=== PATIENT | male | born 1990 | race Caucasian/White ===

== ENCOUNTER 2018-09-24 19:19 | Inpatient (IN) ==
[2018-09-24] MEDS ORDERED: Morphine Sulfate 2 MG/ML SYRINGE IVP ONE (19:26)
[2018-09-24] MEDS ORDERED: Ondansetron 4 MG/2 ML VIAL IVP ONE (19:26)
[2018-09-24] MEDS ORDERED: 0.9 % Sodium Chloride 1,000 ML IVC STA (19:27)
[2018-09-24] MEDS ORDERED: Isovue-370 500 ML BOTTLE IVP ONE (19:27)
--- NOTE | 2018-09-24 19:30 | Emergency Department Note ---
Disposition Clinical Impression: Pancreatitis Qualifiers: Chronicity: acute Pancreatitis type: unspecified pancreatitis type Acute pancreatitis complication: no infection or necrosis Qualified Code(s): K85.90 - Acute pancreatitis without necrosis or infection, unspecified Disposition: Admitted As Inpatient Condition: Fair Referrals: Hardeep Lester MD [Primary Care Provider] - Forms: ED Satisfaction Letter, Work/School Release Time of Disposition: 22:39 General Adult HPI - General Stated complaint: N/V Time Seen by Provider: 09/24/18 19:25 Source: patient, EMS Mode of arrival: EMS Limitations: no limitations Nursing Notes Reviewed: Yes Vital Signs Reviewed: Yes - History of Present Illness HPI Narrative: Male patient with a past medical history of psychiatric disease as well as substance abuse is currently clean and on Suboxone at this time presenting to emergency department with a three-week history of abdominal pain. Has had intermittent abdominal pain for this long as well as intermittent nausea and vomiting. Girlfriend is with him at bedside. States that over the past day it is gotten significantly worse. States that previously he was vomiting after he ate however now he cannot keep anything down. Patient reports some subjective fevers this morning. Denies any hematemesis. Does report that today he has vomit has a very bad odor to it. Denies any diarrhea. No history of abdominal surgeries. - Related Data Home Medications Medication Instructions Recorded Confirmed Suboxone 12 mg-3 mg Sl Film 05/01/16 Previous Rx's Medication Instructions Recorded Benzonatate [Tessalon] 200 mg PO TID PRN #30 capsule 05/17/18 cephALEXin [Keflex] 500 mg PO QID #40 capsule 05/17/18 methylPREDNISolone [Medrol] 4 mg PO TAPER #21 tablet 05/17/18 Allergies Allergy/AdvReac Type Severity Reaction Status Date / Time No Known Allergies Allergy Verified 05/17/18 13:25 All systems ED: reviewed and negative except as stated. Review of Systems: As Per HPI Constitutional: Reports: chills. Denies: fever Cardiovascular: Denies: chest pain, syncope Respiratory: Denies: cough, dyspnea, sputum production Gastrointestinal: Reports: abdominal pain, nausea, vomiting. Denies: diarrhea, hematemesis, melena, hematochezia Genitourinary: Denies: urgency, dysuria, frequency, hematuria Musculoskeletal: Denies: back pain, neck pain Integumentary: Denies: rash Neurological: Reports: weakness Past Medical History - Past Medical History Attestation: Yes The following information was validated with the patient. Source: patient Medical history: Reports: non-contributory Psychiatric history: Reports: no psych history - Social History Smoking Status: Current every day smoker Smokeless Tobacco Status: No Alcohol use: Reports: none Physical Exam - General Limitations: no limitations General appearance: alert, in distress (Appears uncomfortable.) - Head Head exam: atraumatic, normocephalic, normal inspection - Eye Eye exam: Present: normal appearance, PERRL, EOMI - ENT ENT exam: normal exam, normal oropharynx, mucous membranes dry - Neck Neck exam: Present: normal inspection, full ROM, trachea midline - Chest Chest inspection: Present: normal inspection, symmetric chest wall rise. Absent: tenderness - Respiratory Respiratory exam: Present: normal lung sounds bilaterally. Absent: respiratory distress, accessory muscle use - Cardiovascular Cardiovascular exam: Present: regular rate, normal rhythm, normal heart sounds - Abdominal Exam Abdominal exam: Present: soft, tenderness (Diffusely. More on the left upper and left lower quadrant.). Absent: distention, Mason's sign, Rovsing's sign, tenderness at McBurney's Point - Extremities Exam Extremities exam: Present: normal inspection, full ROM, normal capillary refill. Absent: tenderness, pedal edema - Back Exam Back exam: Present: normal inspection, full ROM. Absent: tenderness - Neurological Exam Neurological exam: Present: alert, oriented X3 - Psychiatric Psychiatric exam: Present: normal affect, normal mood - Skin Skin exam: Present: warm, dry, intact, normal color Course Course Narrative: Patient appears uncomfortable resting in bed. He points to the left side of his abdomen when asked about the pain is. We will get a basic lab workup on patient as well as a CT of his abdomen with IV contrast. We will provide patient with anti-medics, a fluid bolus as well as pain medication. Patient's mucus memories are tachy. On exam his abdomen is soft nondistended however he does have pain to palpation of the left upper and left lower quadrants. No Mason sign. No tenderness at McBurney's point. Abdomen is currently not peritoneal on exam. - Reevaluation(s) Reevaluation #1: Patient with acute pancreatitis. We will admit to the hospital for pain and nausea control. Time: 22:18 - Consultations Consultation #1: Dr Carreno accepted Pt in stable condition. Vital Signs Temperature 97.6 F 09/24/18 19:23 Pulse Rate 66 09/24/18 19:23 Respiratory Rate 18 09/24/18 19:23 Blood Pressure 156/87 09/24/18 19:23 O2 Sat by Pulse Oximetry 96 09/24/18 19:23 Temperature 97.6 F 09/24/18 19:23 Pulse Rate 66 09/24/18 19:23 Respiratory Rate 18 09/24/18 19:23 Blood Pressure 156/87 09/24/18 19:23 O2 Sat by Pulse Oximetry 96 09/24/18 19:23 Oxygen Delivery Oxygen Delivery Room Air Medical Decision Making - Medical Records Medical records reviewed: Yes I reviewed the patient's medical records. - Lab Data Lab results reviewed: Yes I reviewed the patient's lab results. Result diagrams: 09/24/18 20:00 09/24/18 20:00 Lab Results 09/24/18 09/24/18 09/24/18 Range/Units 20:00 20:00 20:10 WBC 14.5 H (4.3-11.1) K/mcL RBC 5.56 H (4.19-5.50) M/mcL Hgb 15.8 (12.9-16.9) g/dL Hct 47.8 (37.5-50.1) % MCV 86.0 (83.0-100.0) fL MCH 28.4 (28.0-33.3) pg MCHC 33.1 (31.6-35.5) g/dL RDW 13.4 (11.5-14.5) % Plt Count 216 (140-400) K/mcL MPV 10.5 (9.4-12.4) fL Immature Gran % 0.4 (0-4) % Seg Neutrophils % 90.4 % Lymphocytes % 7.4 % Monocytes % 1.7 % Eosinophils % 0.0 % Basophils % 0.1 % Neutrophils # 13.1 H (1.6-8.9) K/mcL Lymphocytes # 1.1 (0.6-4.6) K/mcL Monocytes # 0.3 (0.0-1.3) K/mcL Eosinophils # 0.0 (0.0-0.6) K/mcL Basophils # 0.0 (0.0-0.2) K/mcL Sodium 139 (136-145) mEq/L Potassium 3.8 (3.5-5.1) mEq/L Chloride 104 (98-107) mEq/L Carbon Dioxide 27 (23-29) mEq/L BUN 9 (6-20) mg/dL Creatinine 0.65 L (0.70-1.30) mg/dL Est GFR ( Amer) > 60 (> 60) Est GFR (Non-Af Amer) > 60 (> 60) BUN/Creatinine Ratio 14 (6-26) Glucose 147 H (70-105) mg/dL Calculated Osmolality 289 (280-300) Calcium 10.0 (8.6-10.3) mg/dL Total Bilirubin 0.4 (0.3-1.0) mg/dL Direct Bilirubin 0.1 (0.0-0.2) mg/dL Indirect Bilirubin 0.3 (0.0-1.2) mg/dL AST 21 (13-39) Units/L ALT 30 (7-52) Units/L Alkaline Phosphatase 75 (34-104) Units/L Serum Total Protein 7.4 (6.4-8.9) g/dL Albumin 4.2 (3.5-5.7) g/dL Globulin 3.2 (2.4-3.5) g/dL Albumin/Globulin Ratio 1.3 (1.1-2.2) Lipase 175 H (11-82) Units/L Urine Color Yellow (Yellow) Urine Clarity Clear (Clear) Urine pH 6.0 (5.0-8.0) pH Units Ur Specific [place] 1.021 (1.010-1.025) Urine Protein Negative (Neg-Trace) mg/dL Urine Glucose (UA) Normal (Normal) mg/dL Urine Ketones Negative (Negative) mg/dL Urine Blood Negative (Negative) Urine Nitrite Negative (Negative) Urine Bilirubin Negative (Negative) Urine Urobilinogen Normal (Normal) mg/dL Ur Leukocyte Esterase Negative (Negative) Ur Culture Indicated? NO (NO) - Radiology Data Radiology results reviewed: Yes I reviewed the patient's radiology results. Abdomen/Pelvis CT 09/24/18 19:27 IMPRESSION: 1. Acute pancreatitis involving the head and uncinate process. No focal pancreatic fluid collection. 2. No other acute findings within the abdomen or pelvis. The appendix is unremarkable. 3. Cholelithiasis with no acute features. D/ / 09/24/2018 21:37:57 Merlin Wallace MD / [facility] Interpreting Provider: Merlin Wallace MD - EKG Data EKG #1 EKG attestation: Yes I reviewed and interpreted this EKG. EKG results narrative: Normal sinus rhythm at a rate of 65. NM interval is 158. QRS duration is 90. QT is 429. QTC is 447. Good R-wave progression. No signs of acute ischemia. No previous EKG to compare to.
--- NOTE | 2018-09-24 19:42 | Emergency Department Note ---
Disposition Clinical Impression: Pancreatitis Qualifiers: Chronicity: acute Pancreatitis type: unspecified pancreatitis type Acute pancreatitis complication: no infection or necrosis Qualified Code(s): K85.90 - Acute pancreatitis without necrosis or infection, unspecified Disposition: Admitted As Inpatient Condition: Fair Time of Disposition: 22:39 General Adult HPI - General Chief complaint: ED Abdominal Pain Stated complaint: N/V Time Seen by Provider: 09/24/18 19:25 Source: patient, EMS Mode of arrival: EMS Limitations: no limitations Nursing Notes Reviewed: Yes Vital Signs Reviewed: Yes - History of Present Illness Pain Scale: 8 - Related Data Home Medications Medication Instructions Recorded Confirmed Suboxone 12 mg-3 mg Sl Film 05/01/16 Buspar 09/24/18 09/24/18 HydrOXYzine 50 mg PO 09/24/18 Previous Rx's Medication Instructions Recorded Benzonatate [Tessalon] 200 mg PO TID PRN #30 capsule 05/17/18 cephALEXin [Keflex] 500 mg PO QID #40 capsule 05/17/18 methylPREDNISolone [Medrol] 4 mg PO TAPER #21 tablet 05/17/18 Allergies Allergy/AdvReac Type Severity Reaction Status Date / Time No Known Allergies Allergy Verified 05/17/18 13:25 Past Medical History - Past Medical History Medical history: Reports: non-contributory Psychiatric history: Reports: no psych history - Social History Smoking Status: Current every day smoker Smokeless Tobacco Status: No Alcohol use: Reports: none Drug use: Reports: none Physical Exam - General Limitations: no limitations General appearance: alert Course Vital Signs Temperature 97.6 F 09/24/18 19:23 Pulse Rate 66 09/24/18 19:23 Respiratory Rate 18 09/24/18 19:23 Blood Pressure 156/87 09/24/18 19:23 O2 Sat by Pulse Oximetry 96 09/24/18 19:23 Temperature 97.6 F 09/24/18 19:23 Pulse Rate 66 09/24/18 19:23 Respiratory Rate 18 09/24/18 19:23 Blood Pressure 156/87 09/24/18 19:23 O2 Sat by Pulse Oximetry 96 09/24/18 19:23 Oxygen Delivery Oxygen Delivery Room Air Medical Decision Making - Medical Records Medical records reviewed: Yes I reviewed the patient's medical records. - Lab Data Lab results reviewed: Yes I reviewed the patient's lab results. Result diagrams: 09/24/18 20:00 09/24/18 20:00 Lab Results 09/24/18 09/24/18 09/24/18 Range/Units 20:00 20:00 20:10 WBC 14.5 H (4.3-11.1) K/mcL RBC 5.56 H (4.19-5.50) M/mcL Hgb 15.8 (12.9-16.9) g/dL Hct 47.8 (37.5-50.1) % MCV 86.0 (83.0-100.0) fL MCH 28.4 (28.0-33.3) pg MCHC 33.1 (31.6-35.5) g/dL RDW 13.4 (11.5-14.5) % Plt Count 216 (140-400) K/mcL MPV 10.5 (9.4-12.4) fL Immature Gran % 0.4 (0-4) % Seg Neutrophils % 90.4 % Lymphocytes % 7.4 % Monocytes % 1.7 % Eosinophils % 0.0 % Basophils % 0.1 % Neutrophils # 13.1 H (1.6-8.9) K/mcL Lymphocytes # 1.1 (0.6-4.6) K/mcL Monocytes # 0.3 (0.0-1.3) K/mcL Eosinophils # 0.0 (0.0-0.6) K/mcL Basophils # 0.0 (0.0-0.2) K/mcL Sodium 139 (136-145) mEq/L Potassium 3.8 (3.5-5.1) mEq/L Chloride 104 (98-107) mEq/L Carbon Dioxide 27 (23-29) mEq/L BUN 9 (6-20) mg/dL Creatinine 0.65 L (0.70-1.30) mg/dL Est GFR ( Amer) > 60 (> 60) Est GFR (Non-Af Amer) > 60 (> 60) BUN/Creatinine Ratio 14 (6-26) Glucose 147 H (70-105) mg/dL Calculated Osmolality 289 (280-300) Calcium 10.0 (8.6-10.3) mg/dL Total Bilirubin 0.4 (0.3-1.0) mg/dL Direct Bilirubin 0.1 (0.0-0.2) mg/dL Indirect Bilirubin 0.3 (0.0-1.2) mg/dL AST 21 (13-39) Units/L ALT 30 (7-52) Units/L Alkaline Phosphatase 75 (34-104) Units/L Serum Total Protein 7.4 (6.4-8.9) g/dL Albumin 4.2 (3.5-5.7) g/dL Globulin 3.2 (2.4-3.5) g/dL Albumin/Globulin Ratio 1.3 (1.1-2.2) Lipase 175 H (11-82) Units/L Urine Color Yellow (Yellow) Urine Clarity Clear (Clear) Urine pH 6.0 (5.0-8.0) pH Units Ur Specific [place] 1.021 (1.010-1.025) Urine Protein Negative (Neg-Trace) mg/dL Urine Glucose (UA) Normal (Normal) mg/dL Urine Ketones Negative (Negative) mg/dL Urine Blood Negative (Negative) Urine Nitrite Negative (Negative) Urine Bilirubin Negative (Negative) Urine Urobilinogen Normal (Normal) mg/dL Ur Leukocyte Esterase Negative (Negative) Ur Culture Indicated? NO (NO) - Radiology Data Radiology results reviewed: Yes I reviewed the patient's radiology results. Abdomen/Pelvis CT 09/24/18 19:27 IMPRESSION: 1. Acute pancreatitis involving the head and uncinate process. No focal pancreatic fluid collection. 2. No other acute findings within the abdomen or pelvis. The appendix is unremarkable. 3. Cholelithiasis with no acute features. D/ / 09/24/2018 21:37:57 Merlin Wallace MD / [facility] Interpreting Provider: Merlin Wallace MD - EKG Data EKG #1 EKG attestation: Yes I reviewed and interpreted this EKG. EKG results narrative: EKG shows normal sinus rhythm with ventricular rate of 65. No ST segment elevation or depression. No arrhythmia or ectopy. Normal EKG. Attestation Statement - Attestation Attestation: I, Pako Andre MD, personally evaluated this patient and discussed their management with the resident physician. I reviewed the resident's note and agree with the documented findings, medical decision making, and plan of care. I reviewed the residents documentation and agree with the residents assessment and plan of care. I have personally had face to face time with the patient. I personally supervised and was present for the smith/critical portions of the f keyla procedures completed by the resident: EKG interpretation. 27-year-old male presents to the emergency department with a complaint of intractable nausea and vomiting for 2 days prior to arrival. Also complains of some left lower quadrant abdominal pain. He had a subjective fever this morning and gave him ibuprofen. He states he has been unable to keep anything down and complains of being very thirsty. reports that yesterday he was mobile and getting around but today he has just been in bed all day. He had a normal bowel movement yesterday. No diarrhea. No melena, hematemesis, or hematochezia. No dysuria or gross hematuria. No flank pain. No chest pain or shortness of breath. On examination patient is a well-developed obese male in no acute distress but does appear to be in moderate discomfort. He is alert and oriented 3. There is no cyanosis or diaphoresis. Mucous membranes are dry. Breath sounds are clear and equal bilaterally. Heart regular rate and rhythm. Abdomen is soft with decreased bowel sounds. There is moderate left mid and lower abdominal tenderness. No guarding or rebound tenderness. Labs reviewed. WBC 14.5. Lipase 175. EKG shows normal sinus rhythm with ventricular rate of 65. No ST segment elevation or depression. No arrhythmia or ectopy. Normal EKG. CT shows acute pancreatitis. Patient received 2 L of normal saline. Zofran 8 mg and morphine 6 mg IV. The hospitalist, Dr. Carreno, was consulted and accepted admission of the patient.
[2018-09-24 20:37] LABS: Basophils % 0.1 %; Hematocrit 47.8 % (37.5-50.1); Hemoglobin 15.8 g/dL (12.9-16.9); Immature Granulocytes % 0.4 % (0-4); Lymphocytes # 1.1 K/mcL (0.6-4.6); Lymphocytes % 7.4 %; Mean Corpuscular HGB Conc 33.1 g/dL (31.6-35.5); Mean Corpuscular Hemoglobin 28.4 pg (28.0-33.3); Mean Platelet Volume 10.5 fL (9.4-12.4); Monocytes # 0.3 K/mcL (0.0-1.3); Monocytes % 1.7 %; Neutrophils # 13.1 K/mcL (1.6-8.9); Platelet Count 216 K/mcL (140-400); Red Blood Count 5.56 M/mcL (4.19-5.50); Red Cell Distribution Width 13.4 % (11.5-14.5); Segmented Neutrophils % 90.4 %; White Blood Count 14.5 K/mcL (4.3-11.1)
[2018-09-24 20:38] LABS: Bilirubin,Urine Negative (Negative); Blood,Urine Negative (Negative); Clarity,Urine Clear (Clear); Color,Urine Yellow (Yellow); Glucose,Urine (UA) Normal (Normal); Ketones,Urine Negative (Negative); Leukocyte Esterase,Urine Negative (Negative); Nitrite,Urine Negative (Negative); Protein,Urine Negative (Neg-Trace); Specific Gravity,Urine 1.021 (1.010-1.025); Urobilinogen,Urine Normal (Normal)
[2018-09-24 20:54] LABS: Alanine Aminotransferase 30 Units/L (7-52); Albumin 4.2 g/dL (3.5-5.7); Albumin/Globulin Ratio 1.3 (1.1-2.2); Alkaline Phosphatase 75 Units/L (34-104); Aspartate Amino Transferase 21 Units/L (13-39); BUN/Creatinine Ratio 14 (6-26); Bilirubin,Direct 0.1 mg/dL (0.0-0.2); Bilirubin,Indirect 0.3 mg/dL (0.0-1.2); Bilirubin,Total 0.4 mg/dL (0.3-1.0); Blood Urea Nitrogen 9 mg/dL (6-20); Carbon Dioxide 27 mEq/L (23-29); Chloride 104 mEq/L (98-107); Globulin 3.2 g/dL (2.4-3.5); Glucose 147 mg/dL (70-105); Lipase 175 Units/L (11-82); Osmolality,Calculated 289 (280-300); Potassium 3.8 mEq/L (3.5-5.1); Sodium 139 mEq/L (136-145); Total Protein 7.4 g/dL (6.4-8.9); eGFR For African Americans > 60 (> 60); eGFR For Non-African Americans > 60 (> 60)
--- NOTE | 2018-09-25 00:01 | Internal Med History&Physical ---
Date of Encounter: 09/24/18 Time of Encounter: 23:59 Internal Medicine - H&P: HPI Chief complaint: abdominal pain Admitted From: Home Plans for Post Hospital Care: Home History of present illness: Nelson Rios is a 27 year old man with psycho d/o NOS and substance use disorder currently on Suboxone who presents to the ER complaining of 3 weeks of intermittent abdominal pain accompanied by nausea and vomiting which was greatly exacerbated in the last few days after an alcohol binge. He has been unable to keep anything down today. No reports of melena or hematemesis. No associated diarrhea or dysuria. He has remained hemodynamically stable. Lab work revealed a mild lipase elevation at [address] scan findings showed mild peripancreatic inflammatory change in the pancreatic head and uncinated process consistent with acute pancreatitis. He was given 6mg of morphine and 8mg ondansetron for relief. Vitals: Reviewed General: Obese white male lying in bed with notable discomfort Skin: Warm and diaphoretic. HEENT: Moist mucous membranes. No conjunctivae pallor. Neck: No lymphadenopathy. No JVD. No carotid bruits. No palpable thyroid. Chest: Normal thoracic expansion. Normal breath sounds. Clear to auscultation. Heart: Normal S1 & S2; rhythmic. No rubs or murmurs. Abdomen: Non-distended, soft and tender to palpation in the superior hemiabdomen. Extremities: No clubbing, cyanosis or edema. No calf tenderness. Normal distal pulses. Neurological: Awake, alert and oriented to person, place and time. No focal deficits. Psych: Affect appropriate. Assessment/Plan 1. Acute pancreatitis: Likely secondary to alcohol binge. Mild in severity clinically and radiologically. Will aggressively hydrate and provide analgesic/antiemetic measures. No signs of infection present. Should improve and be able to be discharged by tomorrow. Monitor electrolytes closely. 2. Substance use disorder: On Suboxone. Has a history of HCV that reportedly has been treated. 3. Psych disorder NOS: Appears stable. 4. DVT prophylaxis: SubQ heparin. Past Med Surg Social Fam HX - Past Medical History Medical history: non-contributory Psychiatric history: no psych history - Social History Smoking Status: Current every day smoker Smokeless Tobacco Status: No Alcohol use: none Drug use: none - Family History Father Living Status: Hx Family Cardiac Disorders: Yes Hx Family Cancer: Yes Hx Family Psychosocial Disorders: Yes Mother Living Status: Still Living Hx Family Endocrine Disorder: Yes Internal Medicine - H&P: Meds Suboxone 12 mg-3 mg Sl Film 05/01/16 [History] Benzonatate [Tessalon] 200 mg PO TID PRN #30 capsule 05/17/18 [Rx] cephALEXin [Keflex] 500 mg PO QID #40 capsule 05/17/18 [Rx] methylPREDNISolone [Medrol] 4 mg PO TAPER #21 tablet 05/17/18 [Rx] Buspar 09/24/18 [History] HydrOXYzine 50 mg PO 09/24/18 [History] Allergy/AdvReac Type Severity Reaction Status Date / Time No Known Allergies Allergy Verified 05/17/18 13:25 All Systems PM: A 10-system review of systems was performed and is negative for pertinent findings except as documented above in the HPI. Family history reviewed and found non-contributory. - Constitutional Vitals: Temp Pulse Resp BP Pulse Ox 97.6 F 63 16 152/90 97 09/24/18 19:23 09/24/18 22:34 09/24/18 22:34 09/24/18 22:34 09/24/18 22:34 Exam: . Internal Med - H&P Results - Labs CBC & Chem 7: 09/24/18 20:00 09/24/18 20:00 Labs: Short CBC 09/24/18 Range/Units 20:00 WBC 14.5 H (4.3-11.1) K/mcL Hgb 15.8 (12.9-16.9) g/dL Hct 47.8 (37.5-50.1) % Plt Count 216 (140-400) K/mcL Neutrophils # 13.1 H (1.6-8.9) K/mcL BMP 09/24/18 20:00 Sodium 139 Potassium 3.8 Chloride 104 Carbon Dioxide 27 BUN 9 Creatinine 0.65 L Glucose 147 H Calcium 10.0 Liver Function 09/24/18 Range/Units 20:00 Total Bilirubin 0.4 (0.3-1.0) mg/dL Direct Bilirubin 0.1 (0.0-0.2) mg/dL AST 21 (13-39) Units/L ALT 30 (7-52) Units/L Alkaline Phosphatase 75 (34-104) Units/L Albumin 4.2 (3.5-5.7) g/dL Urine 09/24/18 Range/Units 20:10 Urine Color Yellow (Yellow) Urine Clarity Clear (Clear) Urine pH 6.0 (5.0-8.0) pH Units Ur Specific [place] 1.021 (1.010-1.025) Urine Protein Negative (Neg-Trace) mg/dL Urine Glucose (UA) Normal (Normal) mg/dL - Impressions ITS Impressions Abdomen/Pelvis CT 09/24/18 19:27 IMPRESSION: 1. Acute pancreatitis involving the head and uncinate process. No focal pancreatic fluid collection. 2. No other acute findings within the abdomen or pelvis. The appendix is unremarkable. 3. Cholelithiasis with no acute features. D/ / 09/24/2018 21:37:57 Merlin Wallace MD / [facility] Interpreting Provider: Merlin Wallace MD - Time Spent With Patient Total time spent is greater than 50% in coordination of care (as documented) at patient's floor/unit and/or counseling patient:
[2018-09-25] MEDS ORDERED: *HR* Promethazine 25 MG/ML VIAL IVP PRN (00:03)
[2018-09-25] MEDS: Ringers Solution, Lactated 1,000 ML IVC SCH ×3 (00:40→11:48)
[2018-09-25] MEDS: Ketorolac 30 MG/ML VIAL IVP PRN ×2 (00:48→08:32)
[2018-09-25] MEDS: *HR* Heparin 5,000 UNIT/ML VIAL SQ SCH ×2 (05:23→16:41)
[2018-09-25 08:37] LABS: Basophils % 0.1 %; Hematocrit 45.7 % (37.5-50.1); Hemoglobin 14.8 g/dL (12.9-16.9); Immature Granulocytes % 0.3 % (0-4); Lymphocytes # 1.1 K/mcL (0.6-4.6); Lymphocytes % 6.3 %; Mean Corpuscular HGB Conc 32.4 g/dL (31.6-35.5); Mean Corpuscular Hemoglobin 28.1 pg (28.0-33.3); Mean Corpuscular Volume 86.9 fL (83.0-100.0); Mean Platelet Volume 11.3 fL (9.4-12.4); Monocytes # 0.5 K/mcL (0.0-1.3); Monocytes % 2.9 %; Neutrophils # 15.7 K/mcL (1.6-8.9); Platelet Count 190 K/mcL (140-400); Red Blood Count 5.26 M/mcL (4.19-5.50); Red Cell Distribution Width 13.7 % (11.5-14.5); Segmented Neutrophils % 90.4 %; White Blood Count 17.4 K/mcL (4.3-11.1)
[2018-09-25 10:36] LABS: BUN/Creatinine Ratio 14 (6-26); Blood Urea Nitrogen 10 mg/dL (6-20); Calcium 9.8 mg/dL (8.6-10.3); Carbon Dioxide 22 mEq/L (23-29); Chloride 100 mEq/L (98-107); Glucose 142 mg/dL (70-105); Osmolality,Calculated 291 (280-300); Potassium 4.2 mEq/L (3.5-5.1); Sodium 140 mEq/L (136-145); eGFR For African Americans > 60 (> 60); eGFR For Non-African Americans > 60 (> 60)
[2018-09-25] MEDS: Ondansetron 4 MG/2 ML VIAL IVP PRN ×2 (11:52→21:14)
[2018-09-25] MEDS ORDERED: 0.9 % Sodium Chloride 1,000 ML IV ONE (13:16)
[2018-09-25] MEDS ORDERED: Dextrose Gel 15 GM/37.5 ML TUBE PO PRN ×2 (13:19)
[2018-09-25] MEDS ORDERED: *HR* Dextrose 50 % in Water (Syg) 50 ML SYRINGE IVP PRN (13:19)
[2018-09-25] MEDS ORDERED: D5% in Water 1,000 ML IVC PRN (13:19)
--- NOTE | 2018-09-25 13:29 | Internal Med Progress Note ---
Hospitalist Progress Note - Encounter Date of Encounter: 09/25/18 Time of Encounter: 13:26 - Subjective Interval History: is a pleasant 27-year-old male with past medical history of class III obesity with no reported other comorbidities originally presented for abdominal pain and vomiting 3 onset continuous progressive with inability to tolerate oral intake. Patient states at least he vomited 5 times yesterday that was non-bloody. Patient denied ever having history of pancreatitis. Patient admits of drinking at least 6 packs of beer past few days. Patient denies any gallbladder disease, hyperlipidemia, hypercalcemia or family history of pancreatitis. Patient denied being on steroids. Current medication include paroxetine, Suboxone, hydroxyzine, trazodone. Patient stated he has been taken those medication for at least 4 months. - Exam Vitals: Temp Pulse Resp BP Pulse Ox 97.9 F 74 18 150/83 98 09/25/18 11:48 09/25/18 11:48 09/25/18 11:48 09/25/18 11:48 09/25/18 11:48 Exam: .General Appearance: Appearing as age, well-nourished in no acute distress. Head: Atraumatic normocephalic Eyes: Conjunctivae normal with no erythema. Anicteric. Mouth: Dry mucus membranes, with no pain. Neck: No Lymphadenopathy in the anterior/posterior cervical chain. No thyromegaly. Trachea midline. Heart: RRR, no murmurs. Capillary refill 5 seconds Lungs: No accessory muscle usage, lungs clear to auscultation bilaterally, no wheezes or crackles. Extremities: No pitting edema, clubbing, cyanosis, or ulcers. Abdomen: minimally distended, normoactive bowel sounds. Tenderness to palpation on the epigastric and left side no guarding. DVT Prophylaxis: Heparin prophylaxis - Summary of Assessment and Plan Summary of Assessment and Plan: 1.Acute pancreatitis: BISAP 0. Likely secondary to alcohol binge. Patient unable tolerate oral intake. Zofran ordered, changed to IV pain medication and increased fluid resuscitation. Strict I's and O's every hour with a goal output 75 mL per hour. LR running. electrolyte replacement. Reviewed patient's medication, lipid panel, right upper quadrant ultrasound ordered. Alcohol abuse: [place] protocol initiated. Substance abuse consultation Patient stated that he is on Suboxone outpatient will need to be verified by pharmacy. History of anxiety and depression: Will resume home medications once able tolerate oral intake. Leukocytosis: Likely secondary to pancreatitis. continue to monitor for evidence of infection at this time. no abx at this time. Hyperglycemia: A1c ordered due to history of polyuria and polydipsia DVT prophylaxis: SubQ heparin. - Time Spent with Patient Total time spent is greater than 35 minutes 50% in coordination of care (as documented) at patient's floor/unit and/or counseling patient: Greater than 35 minutes Plan of Care Discussed with: patient Internal Medicine: Result - Labs CBC & Chem 7: 09/25/18 07:02 09/25/18 07:02 Labs: Short CBC 09/24/18 09/25/18 Range/Units 20:00 07:02 WBC 14.5 H 17.4 H (4.3-11.1) K/mcL Hgb 15.8 14.8 (12.9-16.9) g/dL Hct 47.8 45.7 (37.5-50.1) % Plt Count 216 190 (140-400) K/mcL Neutrophils # 13.1 H 15.7 H (1.6-8.9) K/mcL BMP 09/24/18 09/25/18 20:00 07:02 Sodium 139 140 Potassium 3.8 4.2 Chloride 104 100 Carbon Dioxide 27 22 L BUN 9 10 Creatinine 0.65 L 0.70 Glucose 147 H 142 H Calcium 10.0 9.8 Liver Function 09/24/18 Range/Units 20:00 Total Bilirubin 0.4 (0.3-1.0) mg/dL Direct Bilirubin 0.1 (0.0-0.2) mg/dL AST 21 (13-39) Units/L ALT 30 (7-52) Units/L Alkaline Phosphatase 75 (34-104) Units/L Albumin 4.2 (3.5-5.7) g/dL Urine 09/24/18 Range/Units 20:10 Urine Color Yellow (Yellow) Urine Clarity Clear (Clear) Urine pH 6.0 (5.0-8.0) pH Units Ur Specific [place] 1.021 (1.010-1.025) Urine Protein Negative (Neg-Trace) mg/dL Urine Glucose (UA) Normal (Normal) mg/dL - Impressions Impressions Abdomen/Pelvis CT 09/24/18 19:27 IMPRESSION: 1. Acute pancreatitis involving the head and uncinate process. No focal pancreatic fluid collection. 2. No other acute findings within the abdomen or pelvis. The appendix is unremarkable. 3. Cholelithiasis with no acute features. D/ / 09/24/2018 21:37:57 Merlin Wallace MD / [facility] Interpreting Provider: Merlin Wallace MD Consult Discharge Plan - Plan Referrals: Hardeep Lester MD [Primary Care Provider] -
[2018-09-25 14:23] LABS: VBG HCO3 30 mEq/L (21-27); VBG PCO2 47 mmHg (41-51); VBG PH 7.41 pH Units (7.32-7.42); VBG PO2 81 mmHg (25-50)
[2018-09-25 14:39] LABS: Magnesium 1.9 mg/dL (1.6-2.6)
[2018-09-25] MEDS: Folic Acid 1 MG TABLET PO SCH (16:41)
[2018-09-25] MEDS: Ringers Solution, Lactated 500 ML IVC SCH ×2 (16:42→20:25)
[2018-09-25] MEDS: *HR* LORazepam 1 MG TABLET PO SCH ×2 (16:56→21:13)
[2018-09-25] MEDS: *HR* HYDROmorphone 2 MG/ML SYRINGE IVP PRN ×2 (16:57→21:13)
[2018-09-25] MEDS: Insulin LISPRO 300 UNITS/3 ML VIAL SQ SCH (18:02)
[2018-09-25] MEDS ORDERED: Ringers Solution, Lactated 1,000 ML ONE (19:59)
[2018-09-26] MEDS: *HR* HYDROmorphone 2 MG/ML SYRINGE IVP PRN ×3 (02:45→10:45)
[2018-09-26] MEDS: Ondansetron 4 MG/2 ML VIAL IVP PRN ×3 (02:45→17:34)
[2018-09-26] MEDS: Insulin LISPRO 300 UNITS/3 ML VIAL SQ SCH ×4 (03:11→16:06)
[2018-09-26 05:27] LABS: Basophils % 0.2 %; Hematocrit 42.6 % (37.5-50.1); Hemoglobin 13.9 g/dL (12.9-16.9); Immature Granulocytes % 0.3 % (0-4); Lymphocytes % 17.2 %; Mean Corpuscular HGB Conc 32.6 g/dL (31.6-35.5); Mean Corpuscular Hemoglobin 28.2 pg (28.0-33.3); Mean Corpuscular Volume 86.4 fL (83.0-100.0); Monocytes # 0.5 K/mcL (0.0-1.3); Monocytes % 4.6 %; Neutrophils # 8.9 K/mcL (1.6-8.9); Platelet Count 170 K/mcL (140-400); Red Blood Count 4.93 M/mcL (4.19-5.50); Red Cell Distribution Width 14.2 % (11.5-14.5); Segmented Neutrophils % 77.7 %; White Blood Count 11.5 K/mcL (4.3-11.1)
[2018-09-26 05:39] LABS: Chol/HDL Ratio 4.5 (0-4.9); Magnesium 1.9 mg/dL (1.6-2.6)
[2018-09-26 05:41] LABS: Alanine Aminotransferase 32 Units/L (7-52); Albumin 3.9 g/dL (3.5-5.7); Albumin/Globulin Ratio 1.3 (1.1-2.2); Alkaline Phosphatase 60 Units/L (34-104); Aspartate Amino Transferase 25 Units/L (13-39); BUN/Creatinine Ratio 11 (6-26); Bilirubin,Total 0.4 mg/dL (0.3-1.0); Blood Urea Nitrogen 7 mg/dL (6-20); Calcium 9.5 mg/dL (8.6-10.3); Carbon Dioxide 27 mEq/L (23-29); Chloride 105 mEq/L (98-107); Globulin 2.9 g/dL (2.4-3.5); Glucose 126 mg/dL (70-105); Osmolality,Calculated 292 (280-300); Potassium 3.6 mEq/L (3.5-5.1); Sodium 141 mEq/L (136-145); Total Protein 6.8 g/dL (6.4-8.9); eGFR For African Americans > 60 (> 60); eGFR For Non-African Americans > 60 (> 60)
[2018-09-26] MEDS: Ringers Solution, Lactated 500 ML IVC SCH ×9 (06:16→14:55)
[2018-09-26] MEDS: *HR* Heparin 5,000 UNIT/ML VIAL SQ SCH ×2 (06:46→15:22)
[2018-09-26] MEDS: Folic Acid 1 MG TABLET PO SCH (07:11)
[2018-09-26] MEDS: Thiamine (B-1) 100 MG TABLET PO SCH (07:11)
[2018-09-26] MEDS: Vitamin B Complex/Vit C/Vit E 1 EACH TABLET PO SCH (07:11)
--- NOTE | 2018-09-26 08:14 | Internal Med Progress Note ---
Hospitalist Progress Note - Encounter Date of Encounter: 09/26/18 Time of Encounter: 08:09 - Subjective Interval History: Patient today stated that he is still having abdominal pain mostly to the left that is dull achy 7/10 improved from 9/10 from yesterday. Patient was able to tolerate clear liquid diet with no vomiting, urine outputing is great and above goal. no other concerns. Denied fever, chills, chest pain shortness of breath, or bleeding. otherwise ros negative. - Exam Vitals: Temp Pulse Resp BP Pulse Ox 98.2 F 61 20 161/97 98 09/26/18 07:41 09/26/18 07:41 09/26/18 07:41 09/26/18 07:41 09/26/18 07:41 Exam: .General Appearance: Appearing as age, well-nourished in no acute distress. Head: Atraumatic normocephalic Eyes: Conjunctivae normal with no erythema. Anicteric. Mouth: Dry mucus membranes, with no pain. Neck: No Lymphadenopathy in the anterior/posterior cervical chain. No thyromegaly. Trachea midline. Heart: RRR, no murmurs. Capillary refill 3 seconds Lungs: No accessory muscle usage, lungs clear to auscultation bilaterally, no wheezes or crackles. Extremities: No pitting edema, clubbing, cyanosis, or ulcers. Abdomen: minimally distended, normoactive bowel sounds. Tenderness to palpation on the epigastric and left side with no guarding. DVT Prophylaxis: Heparin prophylaxis - Summary of Assessment and Plan Summary of Assessment and Plan: 1.Acute pancreatitis: BISAP 0. Likely secondary to alcohol binge. Patient improved and is able to tolerate clear liquid diet. Strict I's and O's every hour with a goal output 75 mL per hour. OUtput has been excellent. lipid panel showed normal TG. right upper quadrant ultrasound pending. changed to oral pain medication and continue fluid resuscitation. LR running. electrolyte replacement. Alcohol abuse: No withdrawal sx seen. CIWA protocol initiated. Substance abuse consultation Patient stated that he is on Suboxone outpatient will need to be verified by pharmacy. History of anxiety and depression: W resumed home medications except for subaxnone once able tolerate oral intake. Leukocytosis: Improved.Likely secondary to pancreatitis. continue to monitor for evidence of infection at this time. no abx at this time. Hyperglycemia: A1c ordered due to history of polyuria and polydipsia Pt progressing to baseline. Will change to inpatient. DVT prophylaxis: SubQ heparin. Dispo: inpatient will need 1-2 days. - Time Spent with Patient Total time spent is greater than 50% in coordination of care (as documented) at patient's floor/unit and/or counseling patient: Internal Medicine: Result - Labs CBC & Chem 7: 09/26/18 05:05 09/26/18 05:05 Labs: Short CBC 09/25/18 09/26/18 Range/Units 07:02 05:05 WBC 17.4 H 11.5 H (4.3-11.1) K/mcL Hgb 14.8 13.9 (12.9-16.9) g/dL Hct 45.7 42.6 (37.5-50.1) % Plt Count 190 170 (140-400) K/mcL Neutrophils # 15.7 H 8.9 (1.6-8.9) K/mcL BMP 09/25/18 09/26/18 07:02 05:05 Sodium 140 141 Potassium 4.2 3.6 Chloride 100 105 Carbon Dioxide 22 L 27 BUN 10 7 Creatinine 0.70 0.61 L Glucose 142 H 126 H Calcium 9.8 9.5 Liver Function 09/26/18 Range/Units 05:05 Total Bilirubin 0.4 (0.3-1.0) mg/dL AST 25 (13-39) Units/L ALT 32 (7-52) Units/L Alkaline Phosphatase 60 (34-104) Units/L Albumin 3.9 (3.5-5.7) g/dL - Impressions Impressions Abdomen/Pelvis CT 09/24/18 19:27 IMPRESSION: 1. Acute pancreatitis involving the head and uncinate process. No focal pancreatic fluid collection. 2. No other acute findings within the abdomen or pelvis. The appendix is unremarkable. 3. Cholelithiasis with no acute features. D/ / 09/24/2018 21:37:57 Merlin Wallace MD / felipe Interpreting Provider: Merlin Wallace MD Consult Discharge Plan - Plan Referrals: Hardeep Lester MD [Primary Care Provider] -
[2018-09-26] MEDS: *HR* LORazepam 1 MG TABLET PO SCH ×4 (09:04→14:36)
[2018-09-26 11:12] LABS: Estimated Average Glucose 117 mg/dl
[2018-09-26] MEDS ORDERED: *HR* HYDROcodone/Acet 5/325 mg TABLET PO PRN (13:15)
[2018-09-26] MEDS: Ringers Solution, Lactated 1,000 ML IVC SCH ×2 (16:05→19:55)
--- NOTE | 2018-09-26 16:47 | Electrocardiograph Report ---
[address] [place], [place] [address] Test Date: 2018-09-24 Pat Name: Nelson Rios Department: [id number] Room: 3B Gender: Health And Nutrition Specialist: : [id number] Requested By: Yoselin Woods Order Number: [id number] Reading MD: Fidelia Enamorado Measurements Intervals Medon Rate: 65 P: -2 VA: 158 QRS: 22 QRSD: 98 T: 28 QT: 429 QTc: 447 Interpretive Statements Sinus rhythm Electronically Signed On 09-26-2018 16:45:40 EDT by Fidelia Enamorado
[2018-09-26] MEDS ORDERED: Acetaminophen 325 MG TABLET PO PRN (17:24)
[2018-09-27] MEDS: Insulin LISPRO 300 UNITS/3 ML VIAL SQ SCH ×2 (02:05→05:30)
[2018-09-27] MEDS: *HR* Heparin 5,000 UNIT/ML VIAL SQ SCH (05:57)
[2018-09-27 06:53] VITALS: BP 132/81
[2018-09-27] MEDS: Thiamine (B-1) 100 MG TABLET PO SCH (08:58)
[2018-09-27] MEDS: Vitamin B Complex/Vit C/Vit E 1 EACH TABLET PO SCH (08:58)
[2018-09-27] MEDS: Folic Acid 1 MG TABLET PO SCH (08:58)
[2018-09-27] MEDS ORDERED: hydrOXYzine pamoate 25 MG CAPSULE PO SCH (09:00)
[2018-09-27] MEDS: Ondansetron 4 MG/2 ML VIAL IVP PRN (09:03)
[2018-09-27] MEDS: Ringers Solution, Lactated 1,000 ML IVC SCH (09:19)
--- NOTE | 2018-09-27 09:59 | Discharge Summary ---
- NOTES TO OUTPATIENT PROVIDER Notes to Outpatient Provider: Follow up with PCP. Date of Encounter: 09/27/18 Time of Encounter: 09:57 - Discharge Diagnosis (1) Pancreatitis Priority: Primary Status: Acute Qualifiers: Chronicity: acute Pancreatitis type: unspecified pancreatitis type Acute pancreatitis complication: no infection or necrosis Qualified Code(s): K85.90 - Acute pancreatitis without necrosis or infection, unspecified (2) Alcohol abuse Priority: Secondary Status: Acute (3) Anxiety Priority: Secondary Status: Acute (4) Depression Priority: Secondary Status: Acute (5) Leukocytosis Priority: Secondary Status: Acute Qualifiers: Leukocytosis type: bandemia Qualified Code(s): D72.825 - Bandemia (6) Hyperglycemia Priority: Secondary Status: Acute (7) Prediabetes Priority: Secondary Status: Acute (8) Obesity Priority: Secondary Status: Acute Qualifiers: Body mass index: BMI 40.0-44.9 Qualified Code(s): E66.01 - Morbid (severe) obesity due to excess calories; Z68.41 - Body mass index (BMI) 40.0-44.9, adult Hospital course: Mr. Rios is a 27 year old male with H class III obesity, severe anxiety and depression, history of opiate abuse on Suboxone presented initially with abdominal pain and admitted for pancreatitis BISAP 0. Patient was given aggressive fluid resuscitation, no elevation of calcium, medication were reviewed, right upper quadrant ultrasound showed cholelithiasis without ancillary evidence of acute cholecystitis. Patient was noted to be prediabetic and due to class III obesity entry level sales consultant was consulted. Patient had significant improved back to baseline with opiates weaned off tolerating oral intake. Surgery was consulted and due to patient eating today recommended for surgery tomorrow while in the hospital. The Patient refused to stay another day and proceeded with being discharged outpatient while back to baseline. Patient will contact the surgical office for outpatient cholecystectomy. Patient understands that if he fails to follow up, he will likely develop another episode of pancreatitis and understands that this is a serious disease and could lead to infection, sepsis and . Patient verbalized understanding and will follow up with surgery and PCP. Questions and concerns were addressed [id number] spending 38 minutes.. Time spent discussing smoking cessation with patient: more than 10 minutes - Time Spent with Patient Total time spent providing and/or coordinating discharge services: Time spent: Greater than 30 minutes - Discharge Medications Prescriptions: New Acetaminophen [Tylenol] 650 mg PO Q6HR PRN tablet PRN Reason: Pain Continued Trazodone HCl 100 mg PO HS Paroxetine [Paxil] 30 mg PO DAILY hydrOXYzine HCl [Hydroxyzine HCl] 50 mg PO DAILY Buprenorphine HCl/Naloxone HCl [Buprenorphin-Naloxon 8-2 mg Sl] 1.25 tab SL DAILY Discontinued Buspirone HCl [Buspar] 10 mg PO DAILY PRN PRN Reason: Anxiety Ibuprofen [Ibu-200] 800 mg PO Q6H PRN PRN Reason: Pain Home Medications: Buprenorphine HCl/Naloxone HCl [Buprenorphin-Naloxon 8-2 mg Sl] 1.25 tab SL DAILY 09/26/18 [History] Paroxetine [Paxil] 30 mg PO DAILY 09/26/18 [History] Trazodone HCl 100 mg PO HS 09/26/18 [History] hydrOXYzine HCl [Hydroxyzine HCl] 50 mg PO DAILY 09/26/18 [History] Acetaminophen [Tylenol] 650 mg PO Q6HR PRN tablet 09/27/18 [Rx] Allergies/Adverse Reactions: Allergy/AdvReac Type Severity Reaction Status Date / Time No Known Allergies Allergy Verified 09/26/18 12:58 Date of admission: 09/26/18 09:38 Primary care physician: Hardeep Lester MD - Constitutional Vitals: Temp Pulse Resp BP Pulse Ox 98.0 F 59 18 132/81 97 09/27/18 06:49 09/27/18 06:49 09/27/18 06:49 09/27/18 06:49 09/27/18 06:49 Exam: .General Appearance: Appearing as age, well-nourished in no acute distress. Head: Atraumatic normocephalic Eyes: Conjunctivae normal with no erythema. Anicteric. Mouth: Dry mucus membranes, with no pain. Neck: No Lymphadenopathy in the anterior/posterior cervical chain. No thyromegaly. Trachea midline. Heart: RRR, no murmurs. Capillary refill 3 seconds Lungs: No accessory muscle usage, lungs clear to auscultation bilaterally, no wheezes or crackles. Extremities: No pitting edema, clubbing, cyanosis, or ulcers. Abdomen: Morbid obese, non- distended, normoactive bowel sounds. no tendernss or guarding. - Patient Status Disposition: Home, Self-Care Condition: Fair Functional capacity at discharge: independent ambulation Overall status at discharge: patient is progressing back to baseline - Discharge Instructions Follow Up With: Hardeep Lester MD [Primary Care Provider] - 10/07/18 10:15 am Anthony Gramajo MD [Partnered Physician] - - Diet and Activity Activity: increase activity as tolerated Diet: advance to your usual diet
== END 2018-09-27 12:15 | disposition home or self-care (01) | DRG 282 ==
LOC: 3BNU 19:19 → EMEROOARM 19:19 → SUATTDRO 23:46 → 3BNU 09-25 00:28
PROVIDERS: ADMIT Internal Medicine; ATTEND Internal Medicine